=== PATIENT | male | born 1990 | race Caucasian/White ===

== ENCOUNTER 2018-10-06 20:27 | Emergency (ER) | payer SELFPAY ==
[2018-10-06 20:30] VITALS: BP 137/78; PULSE 73; RESP 16; TEMP 36.4; O2SAT 98
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
[2018-10-06] MEDS: Ibuprofen 600 MG TAB PO (21:31)
== END 2018-10-06 21:38 | disposition home or self-care (01) ==
PROVIDERS: Emergency Provider Emergency Medicine
DX: S62.316A Displaced fracture of base of fifth metacarpal bone, right hand, initial encounter for closed fracture (principal); S50.812A Abrasion of left forearm, initial encounter; V28.0XXA Motorcycle driver injured in noncollision transport accident in nontraffic accident, initial encounter
CPT/HCPCS: 26600; 99282; 73130

== ENCOUNTER 2025-01-27 01:57 | Emergency (ER) | payer SELFPAY ==
[2025-01-27 02:01] VITALS: BP 140/115; PULSE 85; RESP 20; O2SAT 97
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
[2025-01-27] MEDS: Ketorolac 30 MG/ML VIAL IM (02:59)
[2025-01-27] MEDS: Methocarbamol 500 MG TAB 1000 MG PO (03:01)
[2025-01-27] MEDS: Lidocaine 5% Patch 2 PATCH TP (03:19)
[2025-01-27] MEDS: Acetaminophen 500 MG TAB 1000 MG PO (03:25)
[2025-01-27 03:30] VITALS: BP 138/68; PULSE 89; RESP 20; O2SAT 98
== END 2025-01-27 03:32 | disposition home or self-care (01) ==
PROVIDERS: Emergency Provider Emergency Medicine
DX: M62.838 Other muscle spasm (principal)
CPT/HCPCS: 99284; 99283; 96372; J1885